=== PATIENT | female | born 1945 | race Caucasian/White ===

== ENCOUNTER → 2016-08-21 | Outpatient (CLI) | payer OTHER | LOC: RAD 15:18 | DX: M54.5 Low back pain (principal); S83.91XA Sprain of unspecified site of right knee, initial encounter; M51.36 Other intervertebral disc degeneration, lumbar region; M51.37 Other intervertebral disc degeneration, lumbosacral region; M17.11 Unilateral primary osteoarthritis, right knee | CPT/HCPCS: 72110; 73564 ==

== ENCOUNTER → 2016-08-24 | Outpatient (CLI) | payer OTHER | LOC: KOH-I 12:15 | DX: M47.812 Spondylosis without myelopathy or radiculopathy, cervical region (principal); M51.36 Other intervertebral disc degeneration, lumbar region; M51.37 Other intervertebral disc degeneration, lumbosacral region; Z98.890 Other specified postprocedural states | CPT/HCPCS: 72148 ==

== ENCOUNTER → 2016-11-02 | Outpatient (CLI) | payer OTHER | LOC: RAD 14:49 | DX: M54.2 Cervicalgia (principal); M54.6 Pain in thoracic spine; M50.322 Other cervical disc degeneration at C5-C6 level; M47.894 Other spondylosis, thoracic region | CPT/HCPCS: 72050; 72072 ==

== ENCOUNTER 2020-08-22 15:49 | Emergency (ER) | payer MEDICARE, OTHER ==
[2020-08-27] MEDS ORDERED: PAXIL40 MG PO (07:05)
[2020-08-27] MEDS ORDERED: TRAZODONE HCL100 MG PO (07:05)
[2020-08-27] MEDS ORDERED: LOPRESSOR 50 MG50 MG PO (07:05)
[2020-08-27] MEDS ORDERED: TIZANIDINE HCL4 MG PO (07:07)
[2020-08-27] MEDS ORDERED: HYDROCODONE-AC1 EAC1 PO (07:07)
[2020-08-27] MEDS ORDERED: ATIVAN1 MG PO (07:07)
[2020-08-27] MEDS ORDERED: DICLOFENAC SODI75 MG PO (07:08)
== END 2020-08-22 19:00 | disposition home or self-care (01) ==
LOC: ER1 15:49
DX: S52.501A Unspecified fracture of the lower end of right radius, initial encounter for closed fracture (principal); S52.601A Unspecified fracture of lower end of right ulna, initial encounter for closed fracture; W19.XXXA Unspecified fall, initial encounter; Z90.49 Acquired absence of other specified parts of digestive tract; Y92.009 Unspecified place in unspecified non-institutional (private) residence as the place of occurrence of the external cause
CPT/HCPCS: 73090; 73110; 96374; 96375; 99283; C9113; J2270; J2405

== ENCOUNTER 2020-08-25 14:45 | Emergency (ER) | payer MEDICARE, OTHER ==
[2020-08-27] MEDS ORDERED: PAXIL40 MG PO (07:05)
[2020-08-27] MEDS ORDERED: TRAZODONE HCL100 MG PO (07:05)
[2020-08-27] MEDS ORDERED: LOPRESSOR 50 MG50 MG PO (07:05)
[2020-08-27] MEDS ORDERED: ATIVAN1 MG PO (07:07)
[2020-08-27] MEDS ORDERED: HYDROCODONE-AC1 EAC1 PO (07:07)
[2020-08-27] MEDS ORDERED: TIZANIDINE HCL4 MG PO (07:07)
[2020-08-27] MEDS ORDERED: DICLOFENAC SODI75 MG PO (07:08)
== END 2020-08-25 17:19 | disposition home or self-care (01) ==
LOC: ER1 14:45
DX: Z47.89 Encounter for other orthopedic aftercare (principal); Z88.8 Allergy status to other drugs, medicaments and biological substances; Z91.040 Latex allergy status
CPT/HCPCS: 99282

== ENCOUNTER → 2020-08-25 | Outpatient (CLI) | payer MEDICARE, OTHER ==
[~2020-08-25] MED LIST: ATIVAN1 MG PO; DICLOFENAC SODI75 MG PO; HYDROCODONE-AC1 EAC1 PO; LOPRESSOR 50 MG50 MG PO; PAXIL40 MG PO; TIZANIDINE HCL4 MG PO; TRAZODONE HCL100 MG PO
[2020-08-25 13:40] LABS: HEMOGLOBIN 14.2 gm/dl (12.3-15.3); RED BLOOD COUNT 4.49 M/UL (4.00-5.10); WHITE BLOOD COUNT 7.8 K/UL (4.5-11.0)
[2020-08-25 14:04] LABS: BUN/CREATININE RATIO 29 (0-10)
== END ==
LOC: OPSV2 11:00
PROVIDERS: Orthopaedic Surgery
DX: Z01.818 Encounter for other preprocedural examination (principal); S62.101A Fracture of unspecified carpal bone, right wrist, initial encounter for closed fracture; X58.XXXA Exposure to other specified factors, initial encounter
CPT/HCPCS: 36415; 80048; 85027; 93005

== ENCOUNTER → 2020-08-27 | Day surgery (SDC) | payer MEDICARE ==
[~2020-08-27] VITALS: Ht 175.3 cm; Wt 88.0 kg
== END | disposition home or self-care (01) ==
LOC: OR 06:18
PROVIDERS: Orthopaedic Surgery
PROC: 3E0T3BZ Introduction of Anesthetic Agent into Peripheral Nerves and Plexi, Percutaneous Approach (ICD-10-PCS; 2020-08-27)
PROC: 0PSH04Z Reposition Right Radius with Internal Fixation Device, Open Approach (ICD-10-PCS; principal; 2020-08-27 07:30)
DX: S52.571A Other intraarticular fracture of lower end of right radius, initial encounter for closed fracture (principal); S52.611A Displaced fracture of right ulna styloid process, initial encounter for closed fracture; G89.18 Other acute postprocedural pain; I38 Endocarditis, valve unspecified; E78.5 Hyperlipidemia, unspecified; K21.9 Gastro-esophageal reflux disease without esophagitis; K76.0 Fatty (change of) liver, not elsewhere classified; Z91.040 Latex allergy status; Z79.899 Other long term (current) drug therapy; Z20.822 Contact with and (suspected) exposure to COVID-19; W01.0XXA Fall on same level from slipping, tripping and stumbling without subsequent striking against object, initial encounter
CPT/HCPCS: 73110; 76000; C1713; J0171; J0690; J1100; J2001; J2405; J2704; J2795; J3010; J7120

== ENCOUNTER 2021-03-13 19:02 | Emergency (ER) | payer MEDICARE ==
[2021-03-13] MEDS ORDERED: OMNICEF 300 MG300 MG PO (21:04)
[2021-03-13] MEDS ORDERED: PREDNISONE50 MG PO (21:04)
[2021-03-13] MEDS ORDERED: PROVENTIL HFA6.7 GM INH (21:04)
== END 2021-03-13 21:25 | disposition home or self-care (01) ==
LOC: ER1 19:02
DX: J18.9 Pneumonia, unspecified organism (principal); E11.9 Type 2 diabetes mellitus without complications; E78.5 Hyperlipidemia, unspecified; Z20.822 Contact with and (suspected) exposure to COVID-19; Z90.49 Acquired absence of other specified parts of digestive tract
CPT/HCPCS: 71045; 87081; 87880; 99284; U0002

== ENCOUNTER → 2021-03-23 | Outpatient (CLI) | payer MEDICARE ==
[~2021-03-23] MED LIST changes: +OMNICEF 300 MG300 MG PO; +PREDNISONE50 MG PO; +PROVENTIL HFA6.7 GM INH
== END ==
LOC: RAD 12:10
DX: J18.9 Pneumonia, unspecified organism (principal)
CPT/HCPCS: 71046

== ENCOUNTER → 2021-04-28 | Outpatient (CLI) | payer MEDICARE ==
[~2021-04-28] MED LIST changes: +EYE VITAMIN PO; +GLIPIZIDE ER2.5 MG PO; +MULTI-VITAMIN1 EACH PO; +VITAMIN D350 MCG PO
[2021-04-28 11:24] LABS: HEMOGLOBIN 15.1 gm/dl (12.3-15.3); RED BLOOD COUNT 4.63 M/UL (4.00-5.10); WHITE BLOOD COUNT 5.4 K/UL (4.5-11.0)
[2021-04-28 11:49] LABS: BUN/CREATININE RATIO 33 (0-10)
== END ==
LOC: OPSV2 10:00 → EDSTATUS 10:00 → OPSV2 10:03
PROVIDERS: Orthopaedic Surgery
DX: Z01.818 Encounter for other preprocedural examination (principal); M16.11 Unilateral primary osteoarthritis, right hip
CPT/HCPCS: 36415; 80048; 83036; 85025; 93005

== ENCOUNTER → 2021-05-09 | Outpatient (CLI) | payer MEDICARE ==
[~2021-05-09] MED LIST changes: +ABILIFY5 MG PO; +ASPIRIN EC81 MG PO; +BACTROBAN OINT22 GM TOP; +CYCLOBENZAPRINE10 MG PO; +ENDOCET 7.5-321 EACH PO; -EYE VITAMIN PO; +METFORMIN HCL1000 MG PO; +PRESERVISION A1 EAC2 PO; +ZOFRAN4 MG PO
[2021-05-09 13:40] LABS: BUN/CREATININE RATIO 24 (0-10)
== END ==
LOC: LAB 12:18
PROVIDERS: Orthopaedic Surgery
DX: Z01.812 Encounter for preprocedural laboratory examination (principal); M16.11 Unilateral primary osteoarthritis, right hip
CPT/HCPCS: 36415; 80048; 86850; 86900; 86901

== ENCOUNTER 2021-05-10 05:46 | Inpatient (IN) | payer MEDICARE ==
[~2021-05-10] VITALS: Ht 175.3 cm; Wt 88.5 kg
[~2021-05-10 05:46] MED LIST changes: -ABILIFY5 MG PO; -ASPIRIN EC81 MG PO; -BACTROBAN OINT22 GM TOP; -CYCLOBENZAPRINE10 MG PO; -ENDOCET 7.5-321 EACH PO; -METFORMIN HCL1000 MG PO; -ZOFRAN4 MG PO
[2021-05-10] MEDS ORDERED: TRAZODONE HCL100 MG PO (06:34)
[2021-05-10] MEDS ORDERED: ENDOCET 7.5-321 EACH PO (08:32)
[2021-05-10] MEDS ORDERED: CYCLOBENZAPRINE10 MG PO (08:32)
[2021-05-10] MEDS ORDERED: ZOFRAN4 MG PO (08:32)
[2021-05-10] MEDS ORDERED: ASPIRIN EC81 MG PO (13:44)
--- NOTE | 2021-05-10 15:15 | NUR ---
PT O2 AT 86% ON 3 L PT TURNED UP TO 4 L AND SATTING AT 93% BP NOTED AT 63/30
--- NOTE | 2021-05-10 15:20 | NUR ---
patient sent to icu on 4 l o2 more awake hospitalist consult recieved
[2021-05-10] MEDS ORDERED: ABILIFY5 MG PO (16:20)
[2021-05-10] MEDS ORDERED: BACTROBAN OINT22 GM TOP (16:20)
[2021-05-11 05:13] LABS: RED BLOOD COUNT 3.5 M/UL (4.00-5.10)
[2021-05-11 05:34] LABS: BUN/CREATININE RATIO 18 (0-10)
[2021-05-11] MEDS ORDERED: METFORMIN HCL1000 MG PO (13:45)
[2021-05-12 04:18] LABS: BUN/CREATININE RATIO 24 (0-10)
[2021-05-12 04:21] LABS: RED BLOOD COUNT 2.8 M/UL (4.00-5.10); WHITE BLOOD COUNT 6.8 K/UL (4.5-11.0)
[2021-05-12 04:23] LABS: HEMOGLOBIN 8.9 gm/dl (12.3-15.3)
== END 2021-05-12 12:54 | disposition home health service (06) | DRG 469 ==
LOC: OR 05:46 → EDSTATUS 10:45 → OR 10:45 → M/S 14:45 → CCU 16:07 → OR 18:15 → CCU 18:16 → M/S 05-11 20:10
PROVIDERS: Internal Medicine; ADMIT Orthopaedic Surgery
PROC: 5A09457 Assistance with Respiratory Ventilation, 24-96 Consecutive Hours, Continuous Positive Airway Pressure (ICD-10-PCS; 2021-05-10)
PROC: 3E033XZ Introduction of Vasopressor into Peripheral Vein, Percutaneous Approach (ICD-10-PCS; 2021-05-10)
PROC: 0SR901A Replacement of Right Hip Joint with Metal Synthetic Substitute, Uncemented, Open Approach (ICD-10-PCS; principal; 2021-05-10 07:30)
DX: M16.11 Unilateral primary osteoarthritis, right hip (principal); J96.01 Acute respiratory failure with hypoxia; J96.02 Acute respiratory failure with hypercapnia; G92.8 Other toxic encephalopathy; D62 Acute posthemorrhagic anemia; T42.4X5A Adverse effect of benzodiazepines, initial encounter; T40.3X5A Adverse effect of methadone, initial encounter; Z20.822 Contact with and (suspected) exposure to COVID-19; F32.A Depression, unspecified; F41.9 Anxiety disorder, unspecified; E86.9 Volume depletion, unspecified; I10 Essential (primary) hypertension; E11.65 Type 2 diabetes mellitus with hyperglycemia; D72.829 Elevated white blood cell count, unspecified; G47.00 Insomnia, unspecified; I95.9 Hypotension, unspecified; Z88.8 Allergy status to other drugs, medicaments and biological substances; Z90.49 Acquired absence of other specified parts of digestive tract; Z98.890 Other specified postprocedural states; Z79.899 Other long term (current) drug therapy; Z79.82 Long term (current) use of aspirin; Z91.040 Latex allergy status
CPT/HCPCS: 36415; 36600; 71045; 73501; 73502; 76000; 80048; 80053; 82803; 82962; 85025; 85027; 86140; 94660; 94664; 94760; 97110-GP-CQ; 97116; 97116-GP-CQ; 97161; 97166; 97530; 97535; C1776; C9113; J0171; J0690; J1100; J1200; J1650; J1885; J2405; J2704; J2795; J3370; J3475; J7050; J7120

== ENCOUNTER 2021-05-15 05:13 | Emergency (ER) | payer MEDICARE ==
[~2021-05-15 05:13] MED LIST changes: +ABILIFY5 MG PO; +ASPIRIN EC81 MG PO; +BACTROBAN OINT22 GM TOP; +CYCLOBENZAPRINE10 MG PO; +ENDOCET 7.5-321 EACH PO; +METFORMIN HCL1000 MG PO; +ZOFRAN4 MG PO
[2021-05-15 05:48] LABS: HEMOGLOBIN 9.8 gm/dl (12.3-15.3); RED BLOOD COUNT 3.13 M/UL (4.00-5.10)
[2021-05-15 06:55] LABS: BUN/CREATININE RATIO 24 (0-10)
== END 2021-05-15 10:00 | disposition home or self-care (01) ==
LOC: ER1 05:13
PROVIDERS: Emergency Medicine
DX: R60.0 Localized edema (principal)
CPT/HCPCS: 73502; 73562; 80048; 85025; 85379; 85610; 85730; 93971; 99283

== ENCOUNTER → 2021-06-20 | Outpatient (CLI) | payer MEDICARE ==
[2021-06-20 12:46] LABS: HEMOGLOBIN 13.5 gm/dl (12.3-15.3); RED BLOOD COUNT 4.5 M/UL (4.00-5.10)
== END ==
LOC: LAB 11:40
PROVIDERS: Nurse Practitioner Family
DX: T84.84XA Pain due to internal orthopedic prosthetic devices, implants and grafts, initial encounter (principal); Z96.641 Presence of right artificial hip joint
CPT/HCPCS: 36415; 85027; 85652; 86140

== ENCOUNTER → 2021-07-26 | Outpatient (CLI) | payer MEDICARE | LOC: KOH-I 10:15 | DX: M48.061 Spinal stenosis, lumbar region without neurogenic claudication (principal); M51.36 Other intervertebral disc degeneration, lumbar region; Z98.1 Arthrodesis status; M48.07 Spinal stenosis, lumbosacral region; M46.96 Unspecified inflammatory spondylopathy, lumbar region | CPT/HCPCS: 72148 ==

== ENCOUNTER → 2022-02-06 | Outpatient (CLI) | payer MEDICARE | LOC: RT 15:20 | DX: R07.9 Chest pain, unspecified (principal); I44.0 Atrioventricular block, first degree | CPT/HCPCS: 93005 ==